=== PATIENT | female | born 1970 | race African-American/Black ===

== ENCOUNTER 2019-02-05 16:15 | Inpatient (IN) ==
[2019-02-05 18:46] LABS: Basophils % 0.4 % (0.0-0.8); Eosinophils # 0.3 10*3/uL (0.0-0.87); Hematocrit 23.9 VOL% (35.7-47.0); Hemoglobin 6.8 GM/DL (12.0-16.0); Immature Granulocytes % 0.7 %; Immature Granulocytes Absolute 0.06 #; Lymphocytes # 2.4 10*3/uL (1.4-4.0); Lymphocytes % 28.7 % (21.3-54.2); Mean Corpuscular HGB Conc 28.5 GM/DL (32-36); Mean Corpuscular Volume 63.6 FL (87-102); Mean Platelet Volume 10.5 FL (9.6-12.0); Monocytes % 11.6 % (1.7-12.7); NRBC # 0.05 10*3/uL; Neutrophils % 55.6 % (38.7-73.9); Platelet Count 337 T/CUMM (130-400); Red Blood Count 3.76 MC/CUMM (3.8-5.5); Red Cell Distribution Width 22.6 % (9.3-17.3); White Blood Count 8.4 T/CUMM (4-12)
[2019-02-05 18:51] LABS: Apearance,Urine CLOUDY (Clear); Bilirubin,Urine Negative (Negative); Blood, Urine Small mg/dL (Negative); Glucose,Urine (UA) Negative (Negative); Ketones,Urine Negative (Negative); Mucus,Urine Moderate /LPF (Occasional); Nitrite,Urine Negative (Negative); Protein,Urine Negative; RBC,Urine 5 /HPF (0-4); Squamous Epithelial Cell,Urine Few /HPF (0-10); Urine Color Yellow (Yellow); Urine Specific Gravity 1.013 (1.001-1.035); Urine Urobilinogen < 2.0 EU/DL (0.2-1.0); WBC,Urine 5 /HPF (0-6)
[2019-02-05 18:58] LABS: INR 0.9; Partial Thromboplastin Time 24.5 SECS (0-40)
[2019-02-05 19:07] LABS: Alanine Aminotransferase 11 U/L (13-56); Albumin 2.9 G/DL (3.4-5.0); Alkaline Phosphatase 76 U/L (45-117); Amylase 65 U/L (25-115); Aspartate Amino Transferase 11 U/L (0-37); Bilirubin,Total < 0.39 MG/DL (0.2-1.0); Blood Urea Nitrogen 10 MG/DL (7-18); Calcium 8.8 MG/DL (8.5-10.1); Glucose 88 MG/DL (74-106); Osmolality,Calculated 276.4 MOS/KG (273-304); Total Protein 7.7 G/DL (6.4-8.3); Troponin I < 0.015 NG/ML (0.00-0.045)
[2019-02-05 19:42] LABS: Eosinophils 2 % (0-10); Lymphocytes 26 % (20-55); Segmented Neutrophils 62 % (50-85); Total Cells Counted 100
[2019-02-05 19:43] LABS: Hypochromasia 2+; Macrocytosis Slight; Polychromasia Few; Stomatocytes 1+; Target Cells 1+
[2019-02-05 19:44] LABS: Helmet Cells Few; Platelet Estimate Normal
[2019-02-05] MEDS ORDERED: traZODone 50 MG TABLET PO PRN (20:02)
[2019-02-05] MEDS ORDERED: DOCUSATE SODIUM 100 MG CAPSULE PO PRN (20:02)
[2019-02-05] MEDS ORDERED: FLUCONAZOLE 200 MG TABLET PO STA (20:09)
[2019-02-05] MEDS ORDERED: SODIUM CHLORIDE 0.9% 1,000 ML IV PRN (20:12)
[2019-02-05] MEDS ORDERED: PHENOL 1.4% THROAT SPRAY 177 ML BOTTLE PO PRN (20:13)
[2019-02-06] MEDS: cefTRIAXone 2,000 MG in SYRINGE 1 EACH IV SCH ×2 (00:16→21:25)
[2019-02-06 09:41] LABS: Basophils % 0.4 % (0.0-0.8); Eosinophils # 0.3 10*3/uL (0.0-0.87); Hematocrit 23.9 VOL% (35.7-47.0); Hemoglobin 6.8 GM/DL (12.0-16.0); Immature Granulocytes % 0.7 %; Immature Granulocytes Absolute 0.06 #; Lymphocytes # 2.4 10*3/uL (1.4-4.0); Lymphocytes % 28.7 % (21.3-54.2); Mean Corpuscular HGB Conc 28.5 GM/DL (32-36); Mean Corpuscular Volume 63.6 FL (87-102); Mean Platelet Volume 10.5 FL (9.6-12.0); Monocytes % 11.6 % (1.7-12.7); NRBC # 0.05 10*3/uL; Neutrophils % 55.6 % (38.7-73.9); Platelet Count 337 T/CUMM (130-400); Red Blood Count 3.76 MC/CUMM (3.8-5.5); Red Cell Distribution Width 22.6 % (9.3-17.3); White Blood Count 8.4 T/CUMM (4-12)
[2019-02-06 09:45] LABS: Eosinophils 2 % (0-10); Lymphocytes 26 % (20-55); Segmented Neutrophils 62 % (50-85); Total Cells Counted 100
[2019-02-06 09:46] LABS: Polychromasia Few
[2019-02-06 09:47] LABS: Hypochromasia 3+; Microcytosis 2+; Platelet Estimate Normal; Stomatocytes Few; Target Cells Few
[2019-02-06] MEDS: NICOTINE 21 MG/24 HR PATCH TRANSDERM SCH (11:02)
[2019-02-06] MEDS: PANTOPRAZOLE 40 MG TABLET PO SCH (11:03)
[2019-02-06 11:40] LABS: Hemoglobin A1 (Alkaline) 70.6 % (96.5-98.5); Hemoglobin A2 (Alkaline) 2.3 % (1.5-3.5); Hemoglobin S (Alkaline) 27.1 %
[2019-02-06 11:58] LABS: Folate 7.7 NG/ML (5.4-24.0); Vitamin B12 270 PG/ML (211-911)
[2019-02-06] MEDS ORDERED: CYANOCOBALAMIN 1000 MCG/1 ML VIAL IM SCH (13:00)
[2019-02-06] MEDS: ACETAMINOPHEN 325 MG TABLET PO PRN (14:30)
[2019-02-06 20:24] LABS: Hematocrit 28.7 VOL% (35.7-47.0)
[2019-02-06 20:25] LABS: Hemoglobin 8.9 GM/DL (12.0-16.0)
[2019-02-06] MEDS ORDERED: ONDANSETRON 4 MG/2 ML VIAL IV PRN (21:09)
[2019-02-06] MEDS: FOLIC ACID 1 MG TABLET PO SCH (21:22)
[2019-02-07] MEDS: diphenhydrAMINE CAP 25 MG CAPSULE PO PRN ×2 (00:17→23:35)
[2019-02-07] MEDS: ACETAMINOPHEN 325 MG TABLET PO PRN ×3 (00:26→20:33)
[2019-02-07 04:51] LABS: Basophils % 0.3 % (0.0-0.8); Eosinophils # 0.2 10*3/uL (0.0-0.87); Eosinophils % 3.5 % (0.00-10.9); Hematocrit 28.9 VOL% (35.7-47.0); Hemoglobin 8.6 GM/DL (12.0-16.0); Immature Granulocytes % 0.4 %; Immature Granulocytes Absolute 0.03 #; Lymphocytes # 1.8 10*3/uL (1.4-4.0); Lymphocytes % 25.7 % (21.3-54.2); Mean Corpuscular HGB Conc 29.8 GM/DL (32-36); Mean Corpuscular Volume 67.1 FL (87-102); Mean Platelet Volume 10.2 FL (9.6-12.0); Neutrophils % 60.1 % (38.7-73.9); Platelet Count 312 T/CUMM (130-400); Red Blood Count 4.31 MC/CUMM (3.8-5.5); Red Cell Distribution Width 27.3 % (9.3-17.3); White Blood Count 6.8 T/CUMM (4-12)
[2019-02-07 05:06] LABS: Calcium 8.4 MG/DL (8.5-10.1); Osmolality,Calculated 279.3 MOS/KG (273-304)
[2019-02-07 05:15] LABS: Hypochromasia Slight; Platelet Estimate Normal; Polychromasia Few; Target Cells Few
[2019-02-07] MEDS ORDERED: LACTATED RINGERS 500 ML IV SCH (08:00)
[2019-02-07] MEDS ORDERED: LIDOCAINE 1% 5 ML VIAL ONE (09:00)
[2019-02-07] MEDS ORDERED: PROPOFOL 200 MG/20 ML VIAL IV ONE (09:00)
[2019-02-07 09:56] LABS: % Iron Saturation 6.2 % (18-50)
[2019-02-07] MEDS: NICOTINE 21 MG/24 HR PATCH TRANSDERM SCH (11:28)
[2019-02-07] MEDS: PANTOPRAZOLE 40 MG TABLET PO SCH ×2 (11:29→20:34)
[2019-02-07] MEDS ORDERED: IRON SUCROSE 300 MG in SODIUM CHLORIDE 0.9% 100 ML IV ONE (12:20)
[2019-02-07] MEDS: busPIRone 5 MG TABLET PO SCH ×2 (14:47→20:33)
[2019-02-07] MEDS: ACYCLOVIR 200 MG CAPSULE PO SCH ×2 (14:47→20:34)
[2019-02-07] MEDS: amLODIPine 5 MG TABLET PO SCH (17:40)
[2019-02-07] MEDS: risperiDONE 1 MG TABLET PO SCH (20:33)
[2019-02-07] MEDS: FOLIC ACID 1 MG TABLET PO SCH (20:34)
[2019-02-08 05:45] LABS: Basophils % 0.4 % (0.0-0.8); Eosinophils # 0.3 10*3/uL (0.0-0.87); Eosinophils % 3.4 % (0.00-10.9); Hematocrit 30.9 VOL% (35.7-47.0); Hemoglobin 9.3 GM/DL (12.0-16.0); Immature Granulocytes % 0.2 %; Immature Granulocytes Absolute 0.02 #; Lymphocytes # 1.8 10*3/uL (1.4-4.0); Lymphocytes % 22.2 % (21.3-54.2); Mean Corpuscular HGB Conc 30.1 GM/DL (32-36); Mean Corpuscular Volume 66.7 FL (87-102); Monocytes % 10.6 % (1.7-12.7); Neutrophils % 63.2 % (38.7-73.9); Platelet Count 321 T/CUMM (130-400); Red Blood Count 4.63 MC/CUMM (3.8-5.5); Red Cell Distribution Width 28.6 % (9.3-17.3); White Blood Count 8.1 T/CUMM (4-12)
[2019-02-08 06:12] LABS: Hypochromasia 1+
[2019-02-08 06:13] LABS: Ovalocytes Slight; Platelet Estimate Adequate; Target Cells Few
[2019-02-08 06:18] LABS: Calcium 9.7 MG/DL (8.5-10.1); Osmolality,Calculated 278.5 MOS/KG (273-304)
[2019-02-08] MEDS ORDERED: CYANOCOBALAMIN 500 MCG TABLET PO SCH (09:00)
[2019-02-08] MEDS: busPIRone 5 MG TABLET PO SCH (09:11)
[2019-02-08] MEDS: NICOTINE 21 MG/24 HR PATCH TRANSDERM SCH (09:11)
[2019-02-08] MEDS: PANTOPRAZOLE 40 MG TABLET PO SCH (09:12)
[2019-02-08] MEDS: risperiDONE 1 MG TABLET PO SCH (09:12)
[2019-02-08] MEDS: ACYCLOVIR 200 MG CAPSULE PO SCH (09:12)
[2019-02-08] MEDS: amLODIPine 5 MG TABLET PO SCH (09:12)
[2019-02-08 14:24] VITALS: BP 128/85
== END 2019-02-08 14:18 | disposition home or self-care (01) | DRG 663 ==
LOC: N.ED 16:15 → N.EDINP 16:15 → N.5E 20:20
PROVIDERS: ADMIT Hospitalist; ATTEND Hospitalist